=== PATIENT | female | born 1935 | race Caucasian/White ===

== ENCOUNTER 2019-10-19 09:28 | Outpatient (RCR) | payer MEDICARE, SELFPAY | END 2019-10-22 23:59 | disposition home or self-care (01) | LOC: SPT 09:28 | PROVIDERS: PCP Family Medicine; Referring Provider Family Medicine; Visit Provider Family Medicine | DX: M54.32 Sciatica, left side (principal); M11.29 Other chondrocalcinosis, multiple sites | CPT/HCPCS: 97110; 97162 ==

== ENCOUNTER 2019-10-23 06:00 | Outpatient (RCR) | payer MEDICARE, SELFPAY | END 2019-11-21 23:59 | disposition home or self-care (01) | LOC: SPT 06:00 | PROVIDERS: PCP Family Medicine; Visit Provider Family Medicine | DX: M54.30 Sciatica, unspecified side (principal); M11.80 Other specified crystal arthropathies, unspecified site | CPT/HCPCS: 97110 ==

== ENCOUNTER 2019-11-22 06:00 | Outpatient (RCR) | payer MEDICARE, SELFPAY | END 2019-12-22 23:59 | disposition home or self-care (01) | LOC: SPT 06:00 | PROVIDERS: PCP Family Medicine; Visit Provider Family Medicine | DX: M11.80 Other specified crystal arthropathies, unspecified site (principal); M54.30 Sciatica, unspecified side | CPT/HCPCS: 97110 ==

== ENCOUNTER 2021-03-23 15:08 | Observation (INO) | payer MEDICARE, SELFPAY ==
--- NOTE | 2021-03-23 15:22 | CTR_ITS ---
PROCEDURE INFORMATION: Exam: CT Angiography Head With Contrast, Arteriography Exam date and time: 03/23/2021 3:22 PM Age: 85 years old Clinical indication: Patient HX: Weakness, trouble walking, AMS; Additional info: Stroke TECHNIQUE: Imaging protocol: Computed tomography angiography of the head with contrast. Exam focused on the arteries. 3D rendering (Not supervised by radiologist): MIP reconstructed images were created by the technologist. Radiation optimization: All CT scans at this facility use at least one of these dose optimization techniques: automated exposure control; mA and/or kV adjustment per patient size (includes targeted exams where dose is matched to clinical indication); or iterative reconstruction. Contrast material: VISI 320; Contrast volume: 95 ml; Contrast route: INTRAVENOUS (IV); COMPARISON: CT head wo con* [id number] 03/23/2021 3:25 PM RADIATION DOSE METRICS: Total DLP (mGy-cm): 1302.92 FINDINGS: ANTERIOR CIRCULATION: Right internal carotid artery: Right internal carotid artery siphon calcified plaque, less than 50% stenosis. Right middle cerebral artery: Unremarkable. No occlusion or significant stenosis. No aneurysm. Right anterior cerebral artery: Unremarkable. No occlusion or significant stenosis. No aneurysm. Left internal carotid artery: 50-69% stenosis left internal carotid artery cavernous and clinoid segments. Left middle cerebral artery: Unremarkable. No occlusion or significant stenosis. No aneurysm. Left anterior cerebral artery: Unremarkable. No occlusion or significant stenosis. No aneurysm. POSTERIOR CIRCULATION: Right vertebral artery: Unremarkable. No occlusion or significant stenosis. No aneurysm. Left vertebral artery: Unremarkable. No occlusion or significant stenosis. No aneurysm. Basilar artery: Unremarkable. No occlusion or significant stenosis. No aneurysm. Right posterior cerebral artery: Unremarkable. No occlusion or significant stenosis. No aneurysm. Left posterior cerebral artery: Unremarkable. No occlusion or significant stenosis. No aneurysm. Brain: No definite mass, mass effect, or midline shift. Cerebral ventricles: No ventriculomegaly. Bones/joints: Unremarkable. No acute fracture. Soft tissues: Unremarkable. IMPRESSION: 1. 50-69% stenosis left internal carotid artery cavernous and clinoid segments. 2. No acute intracranial vascular abnormality identified. PROCEDURE INFORMATION: Exam: CT Angiography Neck With Contrast Exam date and time: 03/23/2021 3:22 PM Age: 85 years old Clinical indication: Patient HX: Weakness, trouble walking, AMS; Additional info: Stroke TECHNIQUE: Imaging protocol: Computed tomography angiography of the neck with contrast. 3D rendering (Not supervised by radiologist): MIP reconstructed images were created by the technologist. Radiation optimization: All CT scans at this facility use at least one of these dose optimization techniques: automated exposure control; mA and/or kV adjustment per patient size (includes targeted exams where dose is matched to clinical indication); or iterative reconstruction. Contrast material: VISI 320; Contrast volume: 95 ml; Contrast route: INTRAVENOUS (IV); COMPARISON: CT head wo con* [id number] 03/23/2021 3:25 PM RADIATION DOSE METRICS: Total DLP (mGy-cm): 1302.92 FINDINGS: Right common carotid artery: Moderate-marked calcification right common carotid artery bifurcation, less than 50% stenosis. Right internal carotid artery: Moderate calcified plaque right internal carotid artery origin, less than 50% stenosis. Right external carotid artery: Moderate calcified plaque right external carotid artery origin, less than 50% stenosis. Left common carotid artery: Severe left common carotid artery bifurcation calcified plaque, less than 50% stenosis. Left internal carotid artery: Moderate proximal left internal carotid artery calcified plaque, less than 50% stenosis. Left external carotid artery: Severe stenosis left external carotid artery origin. Right vertebral artery: 50-69% stenosis right vertebral artery origin. Left vertebral artery: No stenosis. No dissection or occlusion. Thyroid: Left thyroid enhancing and partially necrotic nodules measuring 17.3 mm and 13.3 mm. Soft tissues: Normal. No significant soft tissue swelling. Bones/joints: Bilateral C3-C4 facet joint fusion. Multilevel disc findings: Mild C2-C3 and C3-C4 anterolisthesis. Mild C5-C6 and C6-C7 retrolisthesis. Multilevel cervical spondylosis, neural foraminal stenoses and facet primary osteoarthritis. CT/CT angio headneck* [id number] IMPRESSION: 1. Severe stenosis left external carotid artery origin. 2. 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 3. No acute extracranial vascular abnormality identified. 4. Recommend nonemergent thyroid sonography for further evaluation of a possible left thyroid nodules. COMMENTS: Consistent with the [employer]'s Incidental Findings Committee white paper (J Am Kianna Radiol 2015): In patients aged 35 years and older with an incidental thyroid nodule equal to or greater than 1.[address], MRI or extrathyroidal US, further evaluation with dedicated thyroid US is recommended for patients with normal life expectancy and without comorbidities. For smaller nodules without suspicious features, no further evaluation or follow up is recommended. REFERENCES: NASCET CRITERIA. The degree of internal carotid artery stenosis is based on NASCET criteria. Normal is no stenosis. Mild is less than 50% stenosis. Moderate is 50-69% stenosis. Severe is 70% to 99% stenosis. Total occlusion is no detectable patent lumen. Radiation Dose CTDIVOL = (mGy): DLP = 1302.92~1302.92 (mGy-cm)
--- NOTE | 2021-03-23 15:22 | CTR_ITS ---
PROCEDURE INFORMATION: Exam: CT Head Without Contrast Exam date and time: 03/23/2021 3:22 PM Age: 85 years old Clinical indication: Walking, difficulty and weakness, extremity; Bilateral; Additional info: Symptoms of acute stroke TECHNIQUE: Imaging protocol: Computed tomography of the head without contrast. Radiation optimization: All CT scans at this facility use at least one of these dose optimization techniques: automated exposure control; mA and/or kV adjustment per patient size (includes targeted exams where dose is matched to clinical indication); or iterative reconstruction. Other technique: STROKE PROTOCOL was implemented. COMPARISON: No relevant prior studies available. RADIATION DOSE METRICS: Total DLP (mGy-cm): 850.96 FINDINGS: Brain: Moderate hypoattenuating foci are noted in the anterior lateral ventricular periventricular white matter bilaterally. No intracranial hemorrhage. No mass or acute cortical infarction identified. Cerebral ventricles: Prominence of the ventricular system and subarachnoid spaces is consistent with the patient's age of 85 years. Paranasal sinuses: Visualized sinuses are unremarkable. No fluid levels. Mastoid air cells: Visualized mastoid air cells are well aerated. Orbital cavity: Bilateral prior cataract surgery with lens replacements. Vasculature: Atherosclerotic calcifications are present involving the carotid artery siphons bilaterally. Bones/joints: No acute abnormality. No acute fracture. Soft tissues: Unremarkable. CT/CT head wo con* [id number] IMPRESSION: 1. Age appropriate supratentorial and infratentorial atrophy. 2. Moderate chronic white matter microvascular ischemic disease. 3. No acute intracranial abnormality identified. ASSESSMENT: ASPECTS ([place] Stroke Program Early CT Score) is 10. Radiation Dose CTDIVOL = (mGy): DLP = 850.96 (mGy-cm)
[2021-03-23 15:29] VITALS: BP 147/97; PULSE 61; RESP 14; TEMP 36.6; O2SAT 94
--- NOTE | 2021-03-23 15:43 | ECG_ITS ---
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 f
--- NOTE | 2021-03-23 15:43 | ED_ITS ---
HPI - General Adult General: Chief complaint: ER Hold Stated complaint: STROKE LIKE SYMPTOMS Time Seen by Provider: 03/23/21 15:22 History of Present Illness: HPI narrative: 85-year-old female with history of prior breast cancer, colon cancer presenting to the emergency room after concerns for intermittent right-sided weakness. Patient was last seen normal at 1230 today at which point family noticed that patient felt lightheaded while using the bathroom and fell down. Family denies any trauma to the head. Patient was noted to have a sided facial droop and right-sided weakness. Since then, patient recover. Per family, patient had another episode of right-sided weakness and facial droop around 230 again that recovered. By the time patient arrived, patient had a stroke scale of 0. Patient denies any chest pain, short palpitation shortness of breath, abdominal complaints or complaints this time. Patient did feel lightheaded. Denies any prior episodes of lightheadedness. Patient denies any fever or chills, no other focal complaints at this time. Onset: 3 hrs ago Duration:3 hrs Location:home Severity:moderate/severe Review of Systems Narrative: Constitutional: No fever, no chills. HEENT: No vision changes CV: No chest pain, no palpitations PULM: no cough, no dyspnea. GI: No abdominal pain, no N/V/D. : No dysuria MSKEL: No muscle pain SKIN: No new rashes, no lesions. NEURO: +intermittent R sided weakness/R sided facial drloop HEME: No visible bruises PSYCH: Normal mood PFSH ED 2 PFSH: Medical History (Updated 03/25/21 @ 00:01 by ) Brain TIA Syncope and collapse Physical Exam Narrative: EXAM NARRATIVE: Head: Atraumatic Eyes: PERRL, conjunctiva without injection ENT: Mucous membrane moist NECK: Supple, ROM intact LUNGS: LCTAB, no crackles/rhonchi CV: RRR ABDOMEN: Soft, nontender in all quadrants EXTREMITY: Normal ROM SKIN: No rash or erythema NEURO: Mental status? Awake, alert, and oriented to self, year, month, location, and situation.? Following simple axial and appendicular commands.? Has appropriate fund of knowledge, comprehension, and insight.? Able to recall and understands pertinent aspects of medical history and current treatment status.? ? Language? Speech is fluent without word-finding difficulties.? 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 ? Cranial nerves? 2,3,4,6: PERRL, EOMI with no nystagmus. 5: Intact sensation to light touch, symmetric? 7: Smile symmetrical, no facial droop.? 8: Hearing grossly intact.? 9,10: Normal palate movement.? 11: Normal strength in trapezius bilaterally 12: Tongue protrudes midline.? ? Motor examination? Normal bulk & tone. Strength as follows (R/L): Delts (5/5), Biceps (5/5), Triceps (5/5), Wrist ext (5/5), hip flexors (5/5), plantarflexors (5/5), dorsiflexors (5/5). ? Sensation? Light Touch: Grossly intact and equal in upper and lower extremities bilaterally? Romberg: Negative.? Distal joint position sense intact ? Coordination? Efszri-zt-vugi-finger movements intact without dysmetria or past-pointing.? Rapid fingertaps: preserved amplitude without decriment.? No tremor, myoclonus or truncal ataxia.? ? Gait/stance? Steady, normal narrow base gait with appropriate arm swing and turning.? Tandem gait without hesitation or loss of balance. PSYCH: Normal mood and affect Course Vital Signs: Vital signs: Vital Signs Temperature 97.8 F 03/24/21 08:00 Pulse Rate 77 03/24/21 17:18 Respiratory Rate 24 H 03/24/21 17:18 Blood Pressure 127/60 03/24/21 17:18 Pulse Oximetry 92 03/24/21 17:18 MDM - General Adult MDM Narrative: Medical decision making narrative: 85-year-old female with a history of prior colon cancer and breast cancer presenting to the emergency room with her for intermittent right-sided weakness. On exam, patient is NIH stroke scale of 0 at the present time. Will work for TIA vs syncope today Disposition: Admission Lab Data: Labs: Lab Results 03/23/21 03/23/21 03/23/21 16:05 16:05 16:05 WBC 14.2 10^3/uL H 10 ^3/uL (4.0-10.0) RBC 4.36 10^6/uL 10^6 /uL (4.1-5.3) Hgb 13.9 g/dL g/dL (11.5-15.3) Hct 41.6 % % (37.0-47.0) MCV 95.4 fl fl (81-99) MCH 31.9 pg pg (28.0-34.0) MCHC 33.4 g/dL g/dL (30.0-36.0) RDW 12.9 % % (12.1-15.1) Plt Count 319 10^3/cmm 10^3 /cmm (130-400) MPV 10.5 fL H fL (7.4-10.4) Neut % (Auto) 80.5 % % Lymph % (Auto) 12.1 % % [place] % (Auto) 6.6 % % Eos % (Auto) 0.1 % % Baso % (Auto) 0.4 % % Neut # (Auto) 11.42 10^3/uL H 1 0^3/uL (1.8-7.7) Lymph # (Auto) 1.7 10^3/uL 10^3/ uL (0.8-4.8) [place] # (Auto) 0.9 10^3/uL 10^3/ uL (0.2-0.9) Eos # (Auto) 0.0 10^3/uL 10^3/ uL (0.0-0.8) Baso # (Auto) 0.1 10^3/uL 10^3/ uL (0.0-0.1) Nucleated RBC % (a uto) 0 % % Nucleated RBCs # 0.0 /100WBC /100W BC PT 14.20 SECONDS SEC ONDS (12.1-14.9) INR 1.06 (0.8-1.2) APTT 33.0 SECONDS SECO NDS (23.9-36.7) Sodium 137 mmol/L mmol/L (136-145) Potassium 5.2 mmol/L H mmol /L (3.5-5.1) Chloride 100 mmol/L mmol/L (98-107) Carbon Dioxide 27 mmol/L mmol/L (22-29) Anion Gap 15.2 (5-19) BUN 23 mg/dL mg/dL (8-23) Creatinine 1.0 mg/dL H mg/dL (0.5-0.9) GFR Calculation Not Reportable Glucose 103 mg/dL mg/dL (65-115) POC Glucose Calculated Osmolal ity 288 mOsm/kg mOsm/ kg (285-295) Calcium 9.6 mg/dL mg/dL (8.5-10.5) Total Bilirubin 0.2 mg/dL mg/dL (0.15-1.2) AST 21 U/L U/L (0-32) ALT 16 U/L U/L (0-33) Alkaline Phosphata se 61 IU/L IU/L (35-105) Troponin T Baselin e Troponin T 120 Min [place] Troponin T Total Protein 7.3 g/dL g/dL (6.6-8.7) Albumin 4.5 g/dL g/dL (3.5-5.2) Globulin 2.8 g/dL g/dL (1.3-4.6) Urine Color Urine Appearance Urine pH Ur Specific Gravit y Urine Protein Urine Glucose (UA) Urine Ketones Urine Blood Urine Nitrate Urine Bilirubin Urine Urobilinogen Ur Leukocyte Najma ase Urine Opiates Scre en Ur Barbiturates Sc reen Ur Phencyclidine S crn Ur Amphetamines Sc reen U Benzodiazepines Scrn Urine Cocaine Scre en U Marijuana (THC) Screen 03/23/21 03/23/21 03/23/21 16:05 16:18 16:27 WBC RBC Hgb Hct MCV MCH MCHC RDW Plt Count MPV Neut % (Auto) Lymph % (Auto) [place] % (Auto) Eos % (Auto) Baso % (Auto) Neut # (Auto) Lymph # (Auto) [place] # (Auto) Eos # (Auto) Baso # (Auto) Nucleated RBC % (a uto) Nucleated RBCs # PT INR APTT Sodium Potassium Chloride Carbon Dioxide Anion Gap BUN Creatinine GFR Calculation Glucose POC Glucose 100 mg/dL mg/dL (70-110) Calculated Osmolal ity Calcium Total Bilirubin AST ALT Alkaline Phosphata se Troponin T Baselin e 11 ng/L H ng/L (0-10) Troponin T 120 Min [place] Troponin T Total Protein Albumin Globulin Urine Color Yellow (Yellow) Urine Appearance Clear (CLEAR) Urine pH 7 (5-7) Ur Specific Gravit y 1.010 (1.005-1.030) Urine Protein Neg (Negative) Urine Glucose (UA) Norm (Normal) Urine Ketones Negative (Negative) Urine Blood Neg (Negative) Urine Nitrate Negative (Negative) Urine Bilirubin Neg (Negative) Urine Urobilinogen Norm mg/dL mg/dL (Negative) Ur Leukocyte Najma ase Negative (Negative) Urine Opiates Scre en Ur Barbiturates Sc reen Ur Phencyclidine S crn Ur Amphetamines Sc reen U Benzodiazepines Scrn Urine Cocaine Scre en U Marijuana (THC) Screen 03/23/21 03/23/21 03/23/21 16:27 18:25 18:25 WBC RBC Hgb Hct MCV MCH MCHC RDW Plt Count MPV Neut % (Auto) Lymph % (Auto) [place] % (Auto) Eos % (Auto) Baso % (Auto) Neut # (Auto) Lymph # (Auto) [place] # (Auto) Eos # (Auto) Baso # (Auto) Nucleated RBC % (a uto) Nucleated RBCs # PT INR APTT Sodium 135 mmol/L L mmol /L (136-145) Potassium 4.5 mmol/L mmol/L (3.5-5.1) Chloride 99 mmol/L mmol/L (98-107) Carbon Dioxide 26 mmol/L mmol/L (22-29) Anion Gap 14.5 (5-19) BUN 21 mg/dL mg/dL (8-23) Creatinine 0.8 mg/dL mg/dL (0.5-0.9) GFR Calculation Not Reportable Glucose 92 mg/dL mg/dL (65-115) POC Glucose Calculated Osmolal ity 283 mOsm/kg L mOs m/kg (285-295) Calcium 8.8 mg/dL mg/dL (8.5-10.5) Total Bilirubin AST ALT Alkaline Phosphata se Troponin T Baselin e Troponin T 120 Min [place] 10.28 ng/L H ng/L (0-10) Delta Troponin T -0.72 ABS# L ABS# (0-10) Total Protein Albumin Globulin Urine Color Urine Appearance Urine pH Ur Specific Gravit y Urine Protein Urine Glucose (UA) Urine Ketones Urine Blood Urine Nitrate Urine Bilirubin Urine Urobilinogen Ur Leukocyte Najma ase Urine Opiates Scre en Negative ng/mL ng /mL (Negative) Ur Barbiturates Sc reen Negative ng/mL ng /mL (Negative) Ur Phencyclidine S crn Negative ng/mL ng /mL (Negative) Ur Amphetamines Sc reen Negative ng/mL ng /mL (Negative) U Benzodiazepines Scrn Negative ng/mL ng /mL (Negative) Urine Cocaine Scre en Negative ng/mL ng /mL (Negative) U Marijuana (THC) Screen Negative ng/mL ng /mL (Negative) Imaging Data^: Other Imaging: Radiologist's impression: [facility], [place] [address]ML Scan ReportSigned with Addenda Patient: Yudith Albright #: [id number]: 07/22cct#:[id number]/Sex: 85 / FADM Date: 03/23/21Loc: ERRoom/Bed:Attending Dr: Ordering Provider/Ordering MD: Sahra Castro MD Date of Service: 03/23/21 Procedure(s): CT head wo con* [id number] Accession Number(s): [id number] Report Number: [id number]/CT head wo con* [id number] THIS REPORT CONTAINS FINDINGS THAT MAY BE CRITICAL TO PATIENT CARE. The findings were verbally communicated by me to DR. SAHRA CASTRO, via telephone conference at 3:55 PM CDT on 03/23/2021. The findings were acknowledged and understood. 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 Radiation Dose CTDIVOL = (mGy): DLP = 850.96 (mGy-cm) Addendum Dictated By: Jake Treadwell MDAddendum Signed By: Jake Treadwell MDSigned Date/Time:03/23/21 1558Addendum Cosigned By: PROCEDURE INFORMATION: Exam: CT Head Without Contrast Exam date and time: 03/23/2021 3:22 PM Age: 85 years old Clinical indication: Walking, difficulty and weakness, extremity; Bilateral; Additional info: Symptoms of acute stroke TECHNIQUE: Imaging protocol: Computed tomography of the head without contrast. Radiation optimization: All CT scans at this facility use at least one of these dose optimization techniques: automated exposure control; mA and/or kV adjustment per patient size (includes targeted exams where dose is matched to clinical indication); or iterative reconstruction. Other technique: STROKE PROTOCOL was implemented. COMPARISON: No relevant prior studies available. RADIATION DOSE METRICS: Total DLP (mGy-cm): 850.96 FINDINGS: Brain: Moderate hypoattenuating foci are noted in the anterior lateral ventricular periventricular white matter bilaterally. No intracranial hemorrhage. No mass or acute cortical infarction identified. Cerebral ventricles: Prominence of the ventricular system and subarachnoid spaces is consistent with the patient's age of 85 years. Paranasal sinuses: Visualized sinuses are unremarkable. No fluid levels. Mastoid air cells: Visualized mastoid air cells are well aerated. Orbital cavity: Bilateral prior cataract surgery with lens replacements. Vasculature: Atherosclerotic calcifications are present involving the carotid artery siphons bilaterally. Bones/joints: No acute abnormality. No acute fracture. Soft tissues: Unremarkable. CT/CT head wo con* [id number] IMPRESSION: 1. Age appropriate supratentorial and infratentorial atrophy. 2. Moderate chronic white matter microvascular ischemic disease. 3. No acute intracranial abnormality identified. ASSESSMENT: ASPECTS ([place] Stroke Program Early CT Score) is 10. Radiation Dose CTDIVOL = (mGy): DLP = 850.96 (mGy-cm) Dictated By:Jake Treadwell MDSigned By:Jake Treadwell MDSigned Date/Time:03/23/21 1538DD/ 21 Discharge Plan Discharge Patient Disposition: Admitted As Inpatient Admit Provider: Karma Arriola Clinical Impression: Syncope and collapse, Brain TIA Condition: Stable Discharge Diet: Cardiac Discharge Activity: Increase activity as tolerated Coding Level of Care Code ED Rivet Machine Operator for aDnii Velarde
[2021-03-23 16:08] VITALS: BP 164/75; PULSE 70; RESP 22; O2SAT 94
[2021-03-23 16:18] LABS: Basophils # 0.1 10^3/uL (0.0-0.1); Basophils % 0.4 %; Eosinophils % 0.1 %; Hematocrit 41.6 % (37.0-47.0); Hemoglobin 13.9 g/dL (11.5-15.3); Lymphocytes # 1.7 10^3/uL (0.8-4.8); Lymphocytes % 12.1 %; Mean Corpuscular HGB Conc 33.4 g/dL (30.0-36.0); Mean Corpuscular Hemoglobin 31.9 pg (28.0-34.0); Mean Corpuscular Volume 95.4 fl (81-99); Mean Platelet Volume 10.5 fL (7.4-10.4); Monocytes # 0.9 10^3/uL (0.2-0.9); Monocytes % 6.6 %; Neutrophils # 11.42 10^3/uL (1.8-7.7); Neutrophils % 80.5 %; Nucleated Red Blood Cells % 0 %; Platelet Count 319 10^3/cmm (130-400); Red Blood Count 4.36 10^6/uL (4.1-5.3); Red Cell Distribution Width 12.9 % (12.1-15.1); White Blood Count 14.2 10^3/uL (4.0-10.0)
[2021-03-23 16:22] LABS: Glucose Point of Care 100 mg/dL (70-110)
[2021-03-23 16:38] LABS: INR 1.06 (0.8-1.2)
[2021-03-23 16:41] LABS: Troponin(5th) Baseline 11 ng/L (0-10)
[2021-03-23 16:43] LABS: Alanine Aminotransferase 16 U/L (0-33); Albumin Level 4.5 g/dL (3.5-5.2); Alkaline Phosphatase 61 IU/L (35-105); Anion Gap 15.2 (5-19); Aspartate Amino Transferase 21 U/L (0-32); Blood Urea Nitrogen 23 mg/dL (8-23); Calcium 9.6 mg/dL (8.5-10.5); Carbon Dioxide 27 mmol/L (22-29); Chloride 100 mmol/L (98-107); Globulin 2.8 g/dL (1.3-4.6); Glucose 103 mg/dL (65-115); Osmolality Calculated 288 mOsm/kg (285-295); Potassium 5.2 mmol/L (3.5-5.1); Sodium 137 mmol/L (136-145); Total Bilirubin 0.2 mg/dL (0.15-1.2); Total Protein 7.3 g/dL (6.6-8.7)
[2021-03-23] MEDS: iodixanol 320 mg/mL 100mL Btl IV (16:47)
[2021-03-23 17:14] LABS: Add Urine Microscopic? NO; Charge for UA Resulting for Rev
[2021-03-23 17:20] LABS: Bilirubin Urine Neg (Negative); Blood Urine Neg (Negative); Glucose Urine UA Norm (Normal); Ketones Urine Negative (Negative); Leukocyte Esterase Urine Negative (Negative); Nitrate Urine Negative (Negative); Protein Urine Neg (Negative); Urine Appearance Clear (CLEAR); Urine Color Yellow (Yellow); Urobilinogen Urine Norm (Negative); pH Urine 7 (5-7)
[2021-03-23 17:27] LABS: Amphetamines Screen Urine Negative (Negative); Barbiturates Screen Urine Negative (Negative); Benzodiazepines Screen Urine Negative (Negative); Cocaine Screen Urine Negative (Negative); Opiate Screen Urine Negative (Negative); PCP Screen Urine Negative (Negative); THC Screen Urine Negative (Negative)
--- NOTE | 2021-03-23 17:43 | ECG_ITS ---
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
--- NOTE | 2021-03-23 18:50 | PM.HP ---
Providers/Chief Complaint Primary Care Provider: Tulio Car DO Chief Complaint: STROKE LIKE SYMPTOMS History of Present Illness Yudith Albright is a 85 year old female with no significant past medical history except breast cancer, colon cancer treated years ago. Patient states he used to be on aspirin after her colon cancer which she recently stopped taking. She states that today around noon she was heading to the bathroom and while sitting on the toilet seat she felt lightheaded and fell on her left side and landed on a basket of toilet paper. She did not hit her head anywhere. Around 2:30 PM her son came over and she had a blank stare with droopiness of her left side and left-sided weakness. It lasted a few minutes and by the time she was brought to the ER the symptoms had completely resolved. In the ER NIH was 1. Patient was asymptomatic. There were no neurological deficits. Stroke alert was called. CT head without contrast was performed which was negative for any intracranial bleed or pathology, CTA head and neck was also done which showed 50 to 69% stenosis left internal carotid artery cavernous and clinoid segments. Severe stenosis left external carotid artery origin, 50 to 69% stenosis right vertebral artery origin no acute extracranial vascular abnormality identified. Severe left common carotid artery bifurcation calcified plaque. Patient does state that she has recently lost her to an intracranial bleed and because of self a worrier at all times. She also appears a little anxious while her discussion in the ER. She denies any chest pain, palpitations, shortness of breath abdominal complaints or prior episodes of lightheadedness at this time. Blood pressure on arrival 164/75, pulse ox 94%, respiratory 22, pulse rate 70, temperature 98. She does not carry a diagnosis of hypertension. She is quite anxious today. She denies smoking but does drink a glass of wine occasionally at night before going to sleep. Review of Systems General: Reports: 10 or more systems reviewed and unremarkable except in HPI and below Medications/Allergies Home Medications Medication Instructions Recorded Confirmed Last Taken Type No Known Home Medications 03/23/21 03/23/21 Unknown History Allergies Allergy/AdvReac Type Severity Reaction Status Date / Time No Known Allergies Allergy Unverified 03/23/21 16:42 Vitals/I&O/Wt Last Vital Signs Temp 98 F 03/23/21 15:29 Pulse 70 03/23/21 16:08 Resp 22 H 10/31/21 16:08 BP 164/75 03/23/21 16:08 Pulse Ox 94 03/23/21 16:08 Physical Exam Narrative: EXAM NARRATIVE: General: Alert oriented x3, patient seen sitting up in bed appearing very comfortable. Patient does appear anxious. HEENT: Normocephalic, atraumatic, EOMI, breathing room air Cardio: Regular rate rhythm, normal S1-S2, no murmurs rubs gallops, Respiratory: Good bilateral air entry, no wheezes no rhonchi appreciated GI: Abdomen soft, nontender, nondistended, bowel sounds + Behavior: Appropriate and cooperative Extremities: Pulses 2+, no edema, no cyanosis Neuro: Cranial nerves II to XII intact, strength 5 out of 5 upper and lower extremities. Right upper extremity division controller weak 4 out of 5. She states she has a history of arthritis in her right hand has always been a little bit weaker. Sensation intact upper and lower extremity, no focal neurological deficits. [id number] test normal, [id number] test normal. Data : 03/23/21 16:05 03/23/21 16:05 A&P Assessment and plan (1) Syncope and collapse: Status: Acute (2) Brain TIA: Status: Acute (3) Carotid artery stenosis: Status: Acute Additional A&P Information #TIA #Severe left carotid artery stenosis #Syncope and collapse #Questionable atrial fibrillation ?Stroke alert called in ER. NIH 0. CTA did not show any acute pathology ?CTA did show severe internal carotid artery stenosis. Will need to consult cardiology in a.m. Question of atrial fibrillation in ER on telemetry. Possibly paroxysmal at this point. Will need to monitor on telemetry overnight ?Start aspirin Plavix atorvastatin Check lipid panel, hemoglobin A1c Patient offered medication for anxiety but she has refused at this time. Son present at bedside. Will check echo. Plan has been discussed in detail with the patient and her son. We will admit for observation. We will check MRI brain Neurochecks every 4 hours Vitals every 4 hours Will need follow-up with neurology as an outpatient after discharge. DVT prophylaxis: Heparin Fluids: Normal saline 100 cc/h Electrolytes: Replete as needed Nutrition: Cardiac diet Activity: As tolerated Attestations Medical Necessity Statement*: Anticipate < 48 hour stay Time Spent in Patient Care: Greater than 35 minutes (>than 50% of time spent in counselling and/or direct pt care on unit). 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
--- NOTE | 2021-03-23 19:05 | PC.NURSE ---
REPORT GIVEN TO HATTIE MINOR ASSUMED CARE.
[2021-03-23 19:17] LABS: Troponin 5 2HR 10.28 ng/L (0-10)
[2021-03-23 19:19] LABS: Anion Gap 14.5 (5-19); Blood Urea Nitrogen 21 mg/dL (8-23); Calcium 8.8 mg/dL (8.5-10.5); Carbon Dioxide 26 mmol/L (22-29); Chloride 99 mmol/L (98-107); Glucose 92 mg/dL (65-115); Osmolality Calculated 283 mOsm/kg (285-295); Potassium 4.5 mmol/L (3.5-5.1); Sodium 135 mmol/L (136-145)
[2021-03-23 19:27] VITALS: BP 151/80; PULSE 68; RESP 18; O2SAT 96
[2021-03-23 19:42] LABS: Troponin 5 2HR Delta -0.72 ABS# (0-10)
[2021-03-23 21:37] VITALS: BP 108/56; PULSE 79; RESP 16; O2SAT 93
--- NOTE | 2021-03-23 21:43 | ECG_ITS ---
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
[2021-03-23] MEDS: sodium chloride 0.9% 1,000 ML 75 ML IV (21:57)
[2021-03-23] MEDS: heparin 5,000 unit/mL INJ 1 mL 5000 UNIT SUBCUT (22:03)
[2021-03-23 23:17] LABS: Troponin 5 6HR 10.05 ng/L (0-10)
[2021-03-23 23:25] LABS: Troponin 5 6HR Delta -0.95 ng/L (0-12)
[2021-03-24] VITALS (11 sets, daily range): BP systolic 121–161; BP diastolic 60–85; PULSE 69–89; RESP 16–24; TEMP 36.6; O2SAT 92–96
[2021-03-24 04:58] LABS: Basophils % 0.4 %; Eosinophils # 0.1 10^3/uL (0.0-0.8); Eosinophils % 1.3 %; Hematocrit 37.8 % (37.0-47.0); Hemoglobin 12.6 g/dL (11.5-15.3); Lymphocytes # 2.2 10^3/uL (0.8-4.8); Lymphocytes % 21.2 %; Mean Corpuscular HGB Conc 33.3 g/dL (30.0-36.0); Mean Corpuscular Hemoglobin 32.1 pg (28.0-34.0); Mean Corpuscular Volume 96.2 fl (81-99); Mean Platelet Volume 9.9 fL (7.4-10.4); Monocytes # 0.9 10^3/uL (0.2-0.9); Monocytes % 8.9 %; Neutrophils # 7.16 10^3/uL (1.8-7.7); Neutrophils % 67.8 %; Nucleated Red Blood Cells % 0 %; Platelet Count 290 10^3/cmm (130-400); Red Blood Count 3.93 10^6/uL (4.1-5.3); Red Cell Distribution Width 13.1 % (12.1-15.1); White Blood Count 10.6 10^3/uL (4.0-10.0)
[2021-03-24 05:34] LABS: Alanine Aminotransferase 12 U/L (0-33); Albumin Level 3.9 g/dL (3.5-5.2); Alkaline Phosphatase 49 IU/L (35-105); Anion Gap 12.2 (5-19); Aspartate Amino Transferase 17 U/L (0-32); Blood Urea Nitrogen 16 mg/dL (8-23); Calcium 8.5 mg/dL (8.5-10.5); Carbon Dioxide 27 mmol/L (22-29); Chloride 102 mmol/L (98-107); Chol HDL Ratio 2.64 mg/dL (0.0-4.40); Cholesterol 222 mg/dL (0-200); Globulin 2.5 g/dL (1.3-4.6); Glucose 105 mg/dL (65-115); HDL Cholesterol 84 mg/dL (60-100); LDL Cholesterol Calculated 126 mg/dL (50-129); Magnesium 2.1 mg/dL (1.7-2.3); Osmolality Calculated 286 mOsm/kg (285-295); Phosphorus 3.7 mg/dL (2.5-4.5); Potassium 4.2 mmol/L (3.5-5.1); Sodium 137 mmol/L (136-145); Thyroid Stimulating Hormone 3.02 uIU/mL (0.27-4.20); Total Bilirubin 0.3 mg/dL (0.15-1.2); Total Protein 6.4 g/dL (6.6-8.7); Triglycerides 61 mg/dL (0-150)
[2021-03-24 05:44] LABS: Estmated Average Glucose 108; Hemoglobin A1C 5.4 % (4.0-6.0)
--- NOTE | 2021-03-24 06:05 | USCV_ITS ---
Yudith Albright Age: 85 Gender: F : 1935 Exam Date: 03/24/2021 08:04 Ordering Phys: Karma Arriola MD Technologist: Sirisha Ashley Exam Location: [facility] [place] Indication: TIA BP: 129 / 77 HR: 68 Rhythm: Sinus Technical Quality: Technically difficult study MEASUREMENTS (Male / Female) Normal Values 2D ECHO LV Diastolic Diameter PLAX 3.5 cm 4.2 - 5.9 / 3.9 - 5.3 cm LV Systolic Diameter PLAX 2.5 cm IVS Diastolic Thickness 1.3 cm 0.6 - 1.0 / 0.6 - 0.9 cm IVS Systolic Thickness 2.1 cm LVPW Diastolic Thickness 1.7 cm 0.6 - 1.0 / 0.6 - 0.9 cm LVPW Systolic Thickness 2.0 cm LVOT Diameter 2.0 cm LV Ejection Fraction 2D Teich 57.2 % LV Ejection Fraction MOD 2C 47.7 % LV Ejection Fraction 2C AL 48.5 % LA Diameter 2.7 cm LA Width 2.3 cm LA Height 4.1 cm RA Width 3.2 cm RA Height 3.8 cm Aorta at Sinotubular Diameter 2.3 cm M-MODE Aortic Annulus Diameter 2.5 cm LA Ao Ratio MM 1.1 MV E Point Septal Separation 0.2 cm DOPPLER AV Peak Velocity 216.5 cm/s LVOT Peak Velocity 88.0 cm/s AV Area Cont Eq vti 1.3 cm squared AV Area Cont Eq pk 1.3 cm squared MV Peak Velocity 109.0 cm/s MV Area PHT 3.7 cm squared Mitral E to A Ratio 0.9 MV E' Velocity 42.0 cm/s Mitral E to MV E' Ratio 9.8 Mitral E to LV E' Lateral Ratio 9.8 Mitral E to LV E' Septal Ratio 9.8 TR Peak Velocity 208.0 cm/s TR Peak Gradient 17.3 mmHg TR Mean Velocity 186.2 cm/s TR Mean Gradient 15.1 mmHg TR Velocity Time Integral 74.5 cm TV Peak E Velocity 41.0 cm/s Right Atrial Pressure 3.0 mmHg Pulmonary Artery Systolic Pressu 20.3 mmHg PV Peak Velocity 157.0 cm/s RV Acceleration Time 0.1 s RV Ejection Time 0.3 s RV AcT/ET 0.3 FINDINGS Left Ventricle Normal left ventricular cavity size and increased left ventricular wall thickness. Normal left ventricular systolic function. Left ventricular ejection fraction is estimated at 60- 65 %. No regional wall motion abnormalities. Right Ventricle Normal right ventricular size and systolic function. Right ventricular systolic pressure 20.3 mmHg. Right Atrium Normal right atrial size. Right atrial pressure estimated at 3 mmHg. Left Atrium Mildly increased left atrial size. Mitral Valve Moderate mitral annular calcification. Thickened mitral valve. No mitral valve stenosis. Trace mitral valve regurgitation. Aortic Valve Moderately thickened and calcified aortic valve. Probably moderate aortic valve stenosis, peak velocity 2.2 m/s, peak gradient 20 mm Hg, mean gradient 11 mmHg , LAKEISHA 1.3 cm squared. Aortic valve stenosis visually appears to moderate. Tricuspid Valve Structurally normal tricuspid valve. Trace to mild tricuspid valve regurgitation. Pulmonic Valve Pulmonic valve not well visualized. Trace pulmonary valve regurgitation. Pericardium No pericardial effusion. Aorta Normal-sized aortic root. Normal-sized inferior vena cava with normal respiratory variation. CONCLUSIONS 1. Normal left ventricular cavity size and increased left ventricular wall thickness. Normal left ventricular systolic function. Left ventricular ejection fraction is estimated at 60- 65 %. No regional wall motion abnormalities. 2. Normal right ventricular size and systolic function. 3. Pulmonary artery pressure estimated at 20 mmHg. 4. Moderately thickened and calcified aortic valve. Probably moderate aortic valve stenosis, peak velocity 2.2 m/s, peak gradient 20 mm Hg, mean gradient 11 mmHg , LAKEISHA 1.3 cm squared. Aortic valve stenosis visually appears to moderate. 5. Moderate mitral annular calcification. Thickened mitral valve. 6. No prior similar studies to compare. Rosetta Santos MD (Electronically Signed) Final Date: 24 March 2021 15:23 S
--- NOTE | 2021-03-24 09:19 | PC.CHAP ---
Pastoral Care Encounter/Spiritual Assessment Type of Contact [] Declined saw offbearer visit [] Patient/Family/Request visit [] Outpatient visit [] Follow-up visit [] Physician referral [] Code/Alert [x] Routine visit [] Staff referral [] Actively dying [] Patient sleeping [x] Family support [] [] Out of room [] Palliative care [] [] Receiving care in room [] Pre-surgical visit [] Trauma [] Long length of stay [] ICU visit [] Other: Relational/Emotional Strength [] Patient feels connected with others/family/visitors/staff [] Distress [] Loneliness/isolation [] Abandonment Spirituality of Patient [] Person of Vanessa [] Attends Catholic of their Vanessa [] Believes in Prayer [] Reads Bible or Sabianist materials [] There are Spiritual issues to be addressed Microsoft Exchange Architect Interventions [x] Prayer [x] Active listening [x] Non-anxious presence [x] Spiritual/emotional support [] Crisis/trauma care [] Spiritual counseling [] Bereavement support [] Provided bereavement packet [] Provided Bible/devotional materials [] Provided toy/stuffed animal, coloring book to patient or family member [] Provided Communion [] Anointing/Velarde [] Salvation [x] Completed spiritual assessment [] Other: Impact on Illness or Injury [] Angry [] Fearful [] Anxious [] Often cries [] Exhaustion [] Unable to work [] Unable to attend gnosticism [] Unable to walk/stand [] Unable to read [] Unable to drive [] Unable to eat/drink [] Unable to sleep [] Unable to be with family [] Patient intubated [] Other: Summary patient resting well... son present.. prayed for wellness and total understanding of the issues... so important that she can continue to take care of herself... very pleased with doctor Time spent with patient 10 min
[2021-03-24] MEDS: clopidogrel 75 mg Tablet PO (09:30)
[2021-03-24] MEDS: aspirin 81 mg EC Tablet PO (09:30)
[2021-03-24] MEDS: heparin 5,000 unit/mL INJ 1 mL 5000 UNIT SUBCUT (09:30)
[2021-03-24] MEDS: atorvastatin 40 mg Tablet 80 MG PO (09:32)
--- NOTE | 2021-03-24 12:34 | P.PN_ITS ---
Vitals/I&O/Wt Last Vital Signs Temp 97.8 F 03/24/21 08:00 Pulse 89 03/24/21 12:00 Resp 24 H 03/24/21 12:00 BP 121/71 03/24/21 12:00 Pulse Ox 96 03/24/21 12:00 03/23/21 03/24/21 03/24/21 22:59 06:59 14:59 Intake Total 1000 / 1000 Balance 1000 / 1000 Weight last 48 hrs Weight 57.47 kg Data : 03/24/21 04:50 03/24/21 04:50 Coding Level of Care Code Acute Donor Services Coordinator for Chg Syd
--- NOTE | 2021-03-24 15:59 | PM.DCS ---
Discharge Providers Date of Admission: 03/23/21 21:04 Date of Discharge: March 24, 2021 Attending Provider at Admission: Karma Arriola MD Attending Provider at Discharge: Abdirahman Connelly MD Primary Care Provider: Tulio Car DO Diagnoses at Discharge Discharge Diagnosis (1) Syncope and collapse: Status: Acute (2) Brain TIA: Status: Acute (3) Carotid artery stenosis: Status: Acute Reason for Visit Reason for Visit: STROKE LIKE SYMPTOMS Hospital Course Hospital Course HPI by Dr Arriola Yudith Albright is a 85 year old female with no significant past medical history except breast cancer, colon cancer treated years ago. Patient states he used to be on aspirin after her colon cancer which she recently stopped taking. She states that today around noon she was heading to the bathroom and while sitting on the toilet seat she felt lightheaded and fell on her left side and landed on a basket of toilet paper. She did not hit her head anywhere. Around 2:30 PM her son came over and she had a blank stare with droopiness of her left side and left-sided weakness. It lasted a few minutes and by the time she was brought to the ER the symptoms had completely resolved. In the ER NIH was 1. Patient was asymptomatic. There were no neurological deficits. Stroke alert was called. CT head without contrast was performed which was negative for any intracranial bleed or pathology, CTA head and neck was also done which showed 50 to 69% stenosis left internal carotid artery cavernous and clinoid segments. Severe stenosis left external carotid artery origin, 50 to 69% stenosis right vertebral artery origin no acute extracranial vascular abnormality identified. Severe left common carotid artery bifurcation calcified plaque. Patient does state that she has recently lost her to an intracranial bleed and because of self a worrier at all times. She also appears a little anxious while her discussion in the ER. She denies any chest pain, palpitations, shortness of breath abdominal complaints or prior episodes of lightheadedness at this time. Blood pressure on arrival 164/75, pulse ox 94%, respiratory 22, pulse rate 70, temperature 98. She does not carry a diagnosis of hypertension. She is quite anxious today. She denies smoking but does drink a glass of wine occasionally at night before going to sleep. HOSP COURSE:- Patient was admitted for evaluation of TIA. MRI head unremarkable, echo without significant valvular acute pathologies, CTA head and neck revealed external carotid lesion and intracranial carotid lesion. Patient's family requested an opinion from Dr. Sotomayor. She will be treated medically with dual antiplatelet therapy for 21 days and then continue aspirin and high-dose statins along omeprazole. Patient wants to follow-up with her PCP Dr. Dey. She does not want to follow-up with Dr. Banks at this point in time. Son was at the bedside, all of the findings were discussed with the patient and her son. Questions were answered to their satisfaction. She remained normotensive. No recurrence of symptoms during hospitalization. She will be discharged on aspirin, Plavix and atorvastatin and omeprazole. Physical Exam Narrative: EXAM NARRATIVE: NIH 0 Nonfocal neuro exam S1, S2 Abdomen soft Nonfocal neuro exam EOMI, PERRLA No audible stridor or wheezing Saturating well on room air Discharge Data Data Completed and Pending: Completed Studies During Hospitalization Category Date Time Status CT angio headneck * [id number] Stat Cat Scan 03/23/21 15:[address] head wo con* 7 [id number] Stat Cat Scan 03/23/21 15:22 Completed MR head wo con* 7 0551 Urgent MRI 03/24/21 21:04 Completed CV. echo complete * [id number] Routine Ultrasound 03/24/21 06:05 Completed Labs from last 24 hours 03/24/21 03/24/21 03/24/21 04:50 04:50 04:50 WBC 10.6 H RBC 3.93 L Hgb 12.6 Hct 37.8 MCV 96.2 MCH 32.1 MCHC 33.3 RDW 13.1 Plt Count 290 MPV 9.9 Neut % (Auto) 67.8 Lymph % (Auto) 21.2 [place] % (Auto) 8.9 Eos % (Auto) 1.3 Baso % (Auto) 0.4 Neut # (Auto) 7.16 Lymph # (Auto) 2.2 [place] # (Auto) 0.9 Eos # (Auto) 0.1 Baso # (Auto) 0.0 Nucleated RBC % (a uto) 0 Nucleated RBCs # 0.0 PT INR APTT Sodium 137 Potassium 4.2 Chloride 102 Carbon Dioxide 27 Anion Gap 12.2 BUN 16 Creatinine 0.7 GFR Calculation Not Reportable Glucose 105 POC Glucose Estimat Average Gl ucose 108 Hemoglobin A1c 5.4 Calculated Osmolal ity 286 Calcium 8.5 Phosphorus 3.7 Magnesium 2.1 Total Bilirubin 0.3 AST 17 ALT 12 Alkaline Phosphata se 49 Troponin T Baselin e Troponin T 120 Min arie Delta Troponin T Troponin T Hi Sens 6Hr Troponin T Hi Sens 6Hr Delta Total Protein 6.4 L Albumin 3.9 Globulin 2.5 Triglycerides 61 Cholesterol 222 H LDL Cholesterol, C alc 126 HDL Cholesterol 84 LDL/HDL Ratio 1.50 Cholesterol/HDL Ra tiana 2.64 TSH 3.02 Urine Color Urine Appearance Urine pH Ur Specific Gravit y Urine Protein Urine Glucose (UA) Urine Ketones Urine Blood Urine Nitrate Urine Bilirubin Urine Urobilinogen Ur Leukocyte Najma ase Urine Opiates Scre en Ur Barbiturates Sc reen Ur Phencyclidine S crn Ur Amphetamines Sc reen U Benzodiazepines Scrn Urine Cocaine Scre en U Marijuana (THC) Screen 03/23/21 03/23/21 03/23/21 22:36 18:25 18:25 WBC RBC Hgb Hct MCV MCH MCHC RDW Plt Count MPV Neut % (Auto) Lymph % (Auto) [place] % (Auto) Eos % (Auto) Baso % (Auto) Neut # (Auto) Lymph # (Auto) [place] # (Auto) Eos # (Auto) Baso # (Auto) Nucleated RBC % (a uto) Nucleated RBCs # PT INR APTT Sodium 135 L Potassium 4.5 Chloride 99 Carbon Dioxide 26 Anion Gap 14.5 BUN 21 Creatinine 0.8 GFR Calculation Not Reportable Glucose 92 POC Glucose Estimat Average Gl ucose Hemoglobin A1c Calculated Osmolal ity 283 L Calcium 8.8 Phosphorus Magnesium Total Bilirubin AST ALT Alkaline Phosphata se Troponin T Baselin e Troponin T 120 Min arie 10.28 H Delta Troponin T -0.72 L Troponin T Hi Sens 6Hr 10.05 H Troponin T Hi Sens 6Hr Delta -0.95 L Total Protein Albumin Globulin Triglycerides Cholesterol LDL Cholesterol, C alc HDL Cholesterol LDL/HDL Ratio Cholesterol/HDL Ra tiana TSH Urine Color Urine Appearance Urine pH Ur Specific Gravit y Urine Protein Urine Glucose (UA) Urine Ketones Urine Blood Urine Nitrate Urine Bilirubin Urine Urobilinogen Ur Leukocyte Najma ase Urine Opiates Scre en Ur Barbiturates Sc reen Ur Phencyclidine S crn Ur Amphetamines Sc reen U Benzodiazepines Scrn Urine Cocaine Scre en U Marijuana (THC) Screen 10/03/23/21 03/23/21 16:27 16:27 16:18 WBC RBC Hgb Hct MCV MCH MCHC RDW Plt Count MPV Neut % (Auto) Lymph % (Auto) [place] % (Auto) Eos % (Auto) Baso % (Auto) Neut # (Auto) Lymph # (Auto) [place] # (Auto) Eos # (Auto) Baso # (Auto) Nucleated RBC % (a uto) Nucleated RBCs # PT INR APTT Sodium Potassium Chloride Carbon Dioxide Anion Gap BUN Creatinine GFR Calculation Glucose POC Glucose 100 Estimat Average Gl ucose Hemoglobin A1c Calculated Osmolal ity Calcium Phosphorus Magnesium Total Bilirubin AST ALT Alkaline Phosphata se Troponin T Baselin e Troponin T 120 Min arie Delta Troponin T Troponin T Hi Sens 6Hr Troponin T Hi Sens 6Hr Delta Total Protein Albumin Globulin Triglycerides Cholesterol LDL Cholesterol, C alc HDL Cholesterol LDL/HDL Ratio Cholesterol/HDL Ra tiana TSH Urine Color Yellow Urine Appearance Clear Urine pH 7 Ur Specific Gravit y 1.010 Urine Protein Neg Urine Glucose (UA) Norm Urine Ketones Negative Urine Blood Neg Urine Nitrate Negative Urine Bilirubin Neg Urine Urobilinogen Norm Ur Leukocyte Najma ase Negative Urine Opiates Scre en Negative Ur Barbiturates Sc reen Negative Ur Phencyclidine S crn Negative Ur Amphetamines Sc reen Negative U Benzodiazepines Scrn Negative Urine Cocaine Scre en Negative U Marijuana (THC) Screen Negative 03/23/21 03/23/21 03/23/21 16:05 16:05 16:05 WBC RBC Hgb Hct MCV MCH MCHC RDW Plt Count MPV Neut % (Auto) Lymph % (Auto) [place] % (Auto) Eos % (Auto) Baso % (Auto) Neut # (Auto) Lymph # (Auto) [place] # (Auto) Eos # (Auto) Baso # (Auto) Nucleated RBC % (a uto) Nucleated RBCs # PT 14.20 INR 1.06 APTT 33.0 Sodium 137 Potassium 5.2 H Chloride 100 Carbon Dioxide 27 Anion Gap 15.2 BUN 23 Creatinine 1.0 H GFR Calculation Not Reportable Glucose 103 POC Glucose Estimat Average Gl ucose Hemoglobin A1c Calculated Osmolal ity 288 Calcium 9.6 Phosphorus Magnesium Total Bilirubin 0.2 AST 21 ALT 16 Alkaline Phosphata se 61 Troponin T Baselin e 11 H Troponin T 120 Min arie Delta Troponin T Troponin T Hi Sens 6Hr Troponin T Hi Sens 6Hr Delta Total Protein 7.3 Albumin 4.5 Globulin 2.8 Triglycerides Cholesterol LDL Cholesterol, C alc HDL Cholesterol LDL/HDL Ratio Cholesterol/HDL Ra tiana TSH Urine Color Urine Appearance Urine pH Ur Specific Gravit y Urine Protein Urine Glucose (UA) Urine Ketones Urine Blood Urine Nitrate Urine Bilirubin Urine Urobilinogen Ur Leukocyte Najma ase Urine Opiates Scre en Ur Barbiturates Sc reen Ur Phencyclidine S crn Ur Amphetamines Sc reen U Benzodiazepines Scrn Urine Cocaine Scre en U Marijuana (THC) Screen 03/23/21 16:05 WBC 14.2 H RBC 4.36 Hgb 13.9 Hct 41.6 MCV 95.4 MCH 31.9 MCHC 33.4 RDW 12.9 Plt Count 319 MPV 10.5 H Neut % (Auto) 80.5 Lymph % (Auto) 12.1 [place] % (Auto) 6.6 Eos % (Auto) 0.1 Baso % (Auto) 0.4 Neut # (Auto) 11.42 H Lymph # (Auto) 1.7 [place] # (Auto) 0.9 Eos # (Auto) 0.0 Baso # (Auto) 0.1 Nucleated RBC % (a uto) 0 Nucleated RBCs # 0.0 PT INR APTT Sodium Potassium Chloride Carbon Dioxide Anion Gap BUN Creatinine GFR Calculation Glucose POC Glucose Estimat Average Gl ucose Hemoglobin A1c Calculated Osmolal ity Calcium Phosphorus Magnesium Total Bilirubin AST ALT Alkaline Phosphata se Troponin T Baselin e Troponin T 120 Min arie Delta Troponin T Troponin T Hi Sens 6Hr Troponin T Hi Sens 6Hr Delta Total Protein Albumin Globulin Triglycerides Cholesterol LDL Cholesterol, C alc HDL Cholesterol LDL/HDL Ratio Cholesterol/HDL Ra tiana TSH Urine Color Urine Appearance Urine pH Ur Specific Gravit y Urine Protein Urine Glucose (UA) Urine Ketones Urine Blood Urine Nitrate Urine Bilirubin Urine Urobilinogen Ur Leukocyte Najma ase Urine Opiates Scre en Ur Barbiturates Sc reen Ur Phencyclidine S crn Ur Amphetamines Sc reen U Benzodiazepines Scrn Urine Cocaine Scre en U Marijuana (THC) Screen Vitals: Last Vital Signs Temp 97.8 F 03/24/21 08:00 Pulse 82 03/24/21 14:00 Resp 24 H 03/24/21 12:00 BP 121/71 03/24/21 12:00 Pulse Ox 96 03/24/21 12:00 Discharge Plan Discharge Patient Disposition: Home Condition: Stable Prescriptions: New aspirin 81 mg Tablet,Delayed Release (Dr/Ec) 81 mg PO DAILY Qty: 30 RF: 3 atorvastatin 40 mg Tablet 80 mg PO DAILY 30 Days Qty: 30 RF: 3 clopidogrel 75 mg Tablet 75 mg PO DAILY 21 Days Qty: 21 RF: 0 omeprazole 10 mg capsule,delayed release(DR/EC) 10 mg PO DAILY Qty: 30 RF: 0 Discharge Orders: Discharge Order (Routine); Ordered 03/24/21 Ordered By: Abdirahman Connelly Referrals: Chidi Jaquez, CERTIFIED RESPIRATORY THERAPIST, MSN, AGACNP- [Nurse Practitioner] - 04/07/21 10:15 am (You have an appointment at [facility] with Chidi Jaquez on April 07 at 10:15am) Tulio Car DO [Primary Care Provider] - 03/28/21 9:20 am (You have a hospital followup with Dr. Car at [facility] on March 28 at 9:20am) Discharge Diet: Cardiac Discharge Activity: Increase activity as tolerated Patient Instructions: Aspirin (By mouth), Atorvastatin (By mouth), Clopidogrel (By mouth), Opioid Safety, TIA Discharge Attestations Time Spent in Discharge Care*: less than 30 min Quality Metrics Clinical Quality Measures During this hospital stay, did patient experience: None Coding Level of Care Code Acute Chg FW DC note Diagnoses Syncope and collapse R55 Brain TIA G45.9 Carotid artery stenosis I65.29
--- NOTE | 2021-03-24 17:45 | PC.NURSE ---
Discharge Note Patient discharged to Home via private vehicle accompanied by son. Discharge instructions reviewed with patient and/or food service sales representatives. Mobile pharmacy medications and/or prescriptions provided. Belongings/home medications returned.
--- NOTE | 2021-03-24 21:04 | MR_ITS ---
WS: [id number] MRI HEAD WITHOUT CONTRAST TECHNIQUE: Sagittal T1, T2 axial, T2 axial FLAIR, axial and coronal T1 images, axial susceptibility w eighted imaging, axial diffusion weighted images, and coronal T2 images were obtained. CLINICAL INFORMATION: TIA COMPARISON: CT March 23, 2021 FINDINGS: No evidence of restricted diffusion to suggest acute ischemia. Ventricular system and basal cisterns are patent. Mild small vessel changes. Moderate parenchymal volume loss. Small vessel changes in the jonathan. Normal posterior fossa. Normal vascular flow voids at the skull base. No extra axial fluid collection s. No evidence of mass or mass effect. Paranasal sinuses and mastoid air cells well aerated. A few chronic lacunar infarcts in the periventr icular white matter. No hemosiderin on susceptibly weighted images. Moderate symmetric atrophy tempor al lobes and hippocampal formations. Normal optic chiasm and pituitary infundibulum. MR/MR head wo con* [id number] IMPRESSION: 1. No evidence of restricted diffusion to suggest acute ischemia. 2. Mild small vessel changes with moderate parenchymal volume loss. 3. A few chronic lacunar infarcts in the periventricular white matter. 4. Moderate symmetric atrophy temporal lobes hippocampal formations. 5. No other significant findings.
== END 2021-03-24 17:40 | disposition home or self-care (01) ==
LOC: ER 18:48 → ER IP 03-24 05:36 → CSU 03-24 06:52
PROVIDERS: Admitting Provider Internal Medicine; Emergency Provider Emergency Medicine; PCP Family Medicine; Visit Provider Internal Medicine
DX: G45.9 Transient cerebral ischemic attack, unspecified (principal); R55 Syncope and collapse; I65.22 Occlusion and stenosis of left carotid artery
CPT/HCPCS: 36415; 36416; 70450; 70496; 70498; 70551; 80048; 80053; 80061; 80306; 81003; 82962; 83036; 83735; 84100; 84443; 84484; 85025; 85610; 85730; 93005; 93306; 96360; 96361; 96372; 99285; G0378; J1644; J7030; Q9967

== ENCOUNTER 2022-03-04 08:55 | Outpatient (CLI) | payer MEDICARE, SELFPAY ==
--- NOTE | 2022-03-04 09:05 | XRR_ITS ---
PROCEDURE INFORMATION: Exam: XR Right Shoulder Exam date and time: 03/04/2022 9:06 AM Age: 86 years old Clinical indication: Right; Patient HX: Lifting and felt pain in shoulder, stroke last February 2021. HX of breast and colon cancer; Additional info: Right shoulder pain TECHNIQUE: Imaging protocol: Radiologic exam of the Right shoulder. Views: 2 or more views. COMPARISON: CT angio headneck* [id number] 03/23/2021 4:38 PM FINDINGS: Bones/joints: Osteoarthritis is seen with narrowing and sclerosis of the right glenohumeral joint. Bone spurs are present. Narrowing of the acromial humeral space is seen which may reflect rotator cuff injury. No additional bony abnormalities seen Soft tissues: Normal. XR/XR shoulder RT min 2V* [id number] IMPRESSION: 1. No acute findings. 2. Osteoarthritis is noted.
== END 2022-03-04 08:56 | disposition home or self-care (01) ==
LOC: RAD 08:58
PROVIDERS: PCP Family Medicine; Visit Provider Clinical Nurse Specialist Adult Health
DX: M19.011 Primary osteoarthritis, right shoulder (principal); G89.29 Other chronic pain
CPT/HCPCS: 73030

== ENCOUNTER 2022-03-11 06:00 | Outpatient (RCR) | payer MEDICARE, SELFPAY | END 2022-03-23 23:59 | disposition home or self-care (01) | LOC: SPT 06:00 | PROVIDERS: PCP Family Medicine; Visit Provider Clinical Nurse Specialist Adult Health | DX: M25.511 Pain in right shoulder (principal); G89.29 Other chronic pain | CPT/HCPCS: 97110; 97161 ==

== ENCOUNTER 2022-03-24 06:00 | Outpatient (RCR) | payer MEDICARE, SELFPAY | END 2022-04-22 23:59 | disposition home or self-care (01) | LOC: SPT 06:00 | PROVIDERS: PCP Family Medicine; Visit Provider Clinical Nurse Specialist Adult Health | DX: M25.511 Pain in right shoulder (principal); G89.29 Other chronic pain | CPT/HCPCS: 97110 ==

== ENCOUNTER → 2022-04-29 13:28 | Outpatient (BNVA) | payer MEDICARE, SELFPAY | PROVIDERS: PCP Family Medicine; Visit Provider Family Medicine | DX: E78.5 Hyperlipidemia, unspecified (principal); E03.9 Hypothyroidism, unspecified; I65.29 Occlusion and stenosis of unspecified carotid artery | CPT/HCPCS: 80053; 80061; 84443 ==

== ENCOUNTER → 2023-05-10 09:55 | Outpatient (BNVA) | payer MEDICARE, SELFPAY | PROVIDERS: PCP Family Medicine; Visit Provider Family Medicine | DX: I65.29 Occlusion and stenosis of unspecified carotid artery (principal); E78.5 Hyperlipidemia, unspecified; E03.9 Hypothyroidism, unspecified; Z13.6 Encounter for screening for cardiovascular disorders; E11.9 Type 2 diabetes mellitus without complications | CPT/HCPCS: 80053; 80061; 83036; 84443 ==

== ENCOUNTER 2024-02-07 06:00 | Outpatient (CLI) | payer MEDICARE, SELFPAY | END 2024-02-07 06:01 | disposition home or self-care (01) | LOC: RAD 02-28 10:07 | PROVIDERS: PCP Family Medicine; Visit Provider Family Medicine | DX: I65.29 Occlusion and stenosis of unspecified carotid artery (principal); E78.5 Hyperlipidemia, unspecified; E03.9 Hypothyroidism, unspecified | CPT/HCPCS: 80053; 80061; 84443 ==

== ENCOUNTER → 2025-02-05 10:14 | Outpatient (BNVA) | payer MEDICARE, SELFPAY | PROVIDERS: PCP Family Medicine; Visit Provider Family Medicine | DX: E78.5 Hyperlipidemia, unspecified (principal); Z00.00 Encounter for general adult medical examination without abnormal findings; E03.9 Hypothyroidism, unspecified | CPT/HCPCS: 80053; 80061; 84443 ==

== ENCOUNTER 2025-03-23 06:54 | Outpatient (CLI) | payer MEDICARE, SELFPAY ==
--- NOTE | 2025-03-23 07:00 | USCV_ITS ---
Yudith Albright Age: 89 Gender: F : 1935 Exam Date: 03/23/2025 07:23 Ordering Phys: Tulio Car DO Technologist: Alex Juarez Exam Location: [facility] – [place] Indication: nonrheumatic aortic valve stenosis BP: 140 / 66 HR: 69 Rhythm: Sinus Technical Quality: Technically difficult study MEASUREMENTS (Male / Female) Normal Values 2D ECHO LVOT Diameter 2.2 cm LV Ejection Fraction MOD 4C 59.0 % LV Ejection Fraction MOD 2C 58.1 % LV Ejection Fraction 2C AL 57.0 % LA Diameter 3.0 cm RA Systolic Volume 4C AL 28.0 ml RA Systolic Volume 4C MOD 27.6 ml LA Sys Volume AL 29.2 cm cubed LA Sys Volume Index AL 18.3 cm cubed/m squared Aorta at Sinotubular Diameter 2.4 cm IVC Diameter 1.3 cm DOPPLER AV Peak Velocity 326.0 cm/s LVOT Peak Velocity 93.0 cm/s AV Area Cont Eq vti 0.9 cm squared AV Area Cont Eq pk 1.1 cm squared MV Peak Velocity 103.0 cm/s MV Area PHT 3.0 cm squared Mitral E to A Ratio 0.7 TV Peak Velocity 200.0 cm/s TR Peak Velocity 216.0 cm/s TR Peak Gradient 18.7 mmHg TR Mean Velocity 176.0 cm/s TR Mean Gradient 13.4 mmHg TR Velocity Time Integral 62.5 cm PV Peak Velocity 78.0 cm/s RV Ejection Time 0.2 s FINDINGS Left Ventricle Normal left ventricular size, systolic function and wall thickness with no regional wall motion abnormality. Left ventricular ejection fraction is 60%. Indeterminate left ventricular diastolic function due to severe mitral annular calcification. Right Ventricle Normal right ventricular size and systolic function. Right Atrium Normal right atrial size. Left Atrium Normal left atrial size. IA Septum Normal appearance of the interatrial septum. Mitral Valve Severe mitral annular calcification. No mitral valve stenosis. Trace mitral valve regurgitation. Aortic Valve The aortic valve is not well-visualized. There is at least moderate aortic valve calcification. Moderate to severe aortic valve stenosis with an aortic valve area by continuity equation of 1.0 cm squared. The LVOT to aortic valve velocity ratio is 0.28. There is no aortic valve regurgitation. Tricuspid Valve Normal tricuspid valve structure. Trace tricuspid valve regurgitation. Normal pulmonary pressure. Pulmonic Valve Normal pulmonic valve structure. No pulmonic valve stenosis or regurgitation. Pericardium No pericardial effusion. Aorta Normal diameter of the aortic root and ascending thoracic aorta. IVC Normal IVC diameter. CONCLUSIONS Normal left ventricular size, systolic function and wall thickness with ejection fraction of 60%. Normal right ventricular size and systolic function. Moderate to severe aortic valve stenosis This was a technically difficult study. Roberto Mauricio MD, FACC (Electronically Signed) Final Date: 23 March 2025 20:28 S
== END 2025-03-23 06:55 | disposition home or self-care (01) ==
LOC: RAD 06:55
PROVIDERS: PCP Family Medicine; Visit Provider Family Medicine
DX: I35.0 Nonrheumatic aortic (valve) stenosis (principal); E78.5 Hyperlipidemia, unspecified; E03.9 Hypothyroidism, unspecified; M19.90 Unspecified osteoarthritis, unspecified site
CPT/HCPCS: 93306

== ENCOUNTER 2025-04-03 21:32 | Emergency (ER) | payer MEDICARE, SELFPAY ==
[2025-04-03 21:34] VITALS: BP 111/53; PULSE 99; RESP 16; TEMP 37.2; O2SAT 93
--- NOTE | 2025-04-03 23:04 | ECG_ITS ---
[facility] Test Date: 2025-04-04 Pat Name: Yudith Albright Department: Room: Gender: Female Manager Department: : 1935 Requested By: Isaura Dos Santos Order Number: [id number] Anabella MD: Roberto Mauricio M.D. Measurements Intervals [place] Rate: 104 P: 16 IL: 166 QRS: -10 QRSD: 82 T: 38 QT: 299 QTc: 394 Interpretive Statements SINUS TACHYCARDIA ABNORMAL RHYTHM ECG Compared to ECG 03/23/2021 22:13:42 Myocardial infarct finding no longer present Electronically Signed On 04-04-2025 20:13:27 PRODUCTION LINE by Roberto Mauricio M.D. [email or web address]
[2025-04-03 23:43] LABS: Hematocrit 37.2 % (36-47); Hemoglobin 12.80 g/dL (11.27-16.99); Mean Corpuscular HGB Conc 34.4 g/dL (30-55); Mean Corpuscular Hemoglobin 31.6 pg (27-33); Mean Corpuscular Volume 91.9 fl (85-98); Platelet Count 309 10^3/cmm (157-399); Red Blood Count 4.05 10^6/uL (3.85-5.65); White Blood Count 17.58 10^3/uL (3.29-11.43)
[2025-04-03 23:46] VITALS: BP 140/73; PULSE 100; O2SAT 92
[2025-04-04 00:01] LABS: Troponin(5th) Baseline 16 ng/L (0-10)
[2025-04-04 00:03] LABS: Alanine Aminotransferase 11 U/L (0-33); Albumin Level 4.1 g/dL (3.5-5.2); Alkaline Phosphatase 65 U/L (35-105); Anion Gap 17.5 (5-19); Aspartate Amino Transferase 14 U/L (0-32); Blood Urea Nitrogen 22 mg/dL (8-23); Calcium 8.9 mg/dL (8.5-10.5); Carbon Dioxide 24 mmol/L (22-29); Chloride 95 mmol/L (98-107); Creatinine Clr Calc Pharmacy 45.4239; Globulin 2.6 g/dL (1.3-4.6); Glucose 187 mg/dL (65-115); Lipase 22 U/L (13-60); Osmolality Calculated 282 mOsm/kg (285-295); Potassium 4.5 mmol/L (3.5-5.1); Sodium 132 mmol/L (136-145); Total Protein 6.7 g/dL (6.6-8.7)
[2025-04-04] MEDS: ondansetron 2 mg/ML SDV 2 mL 4 MG IVP (00:14)
[2025-04-04 00:15] VITALS: BP 126/84; PULSE 104; O2SAT 92
[2025-04-04 00:18] LABS: Band Neutrophils Absolute 3.3 10^3/cmm (0.0-1.2); Slide Review Slide Review Perform; Total Cells Counted 100 (0-100)
[2025-04-04 00:19] LABS: Absolute Segmented Neutrophil 13.0 10/cmm (1.6-7.1)
[2025-04-04 00:32] VITALS: BP 143/83; PULSE 100; O2SAT 93
[2025-04-04 01:30] VITALS: BP 133/97; PULSE 101; O2SAT 91
--- NOTE | 2025-04-04 01:30 | ED_ITS ---
HPI - General Adult 2 General: Chief complaint: Nausea/Vomiting/Diarrhea Stated complaint: V\From Medicine from Urgent Care Time Seen by Provider: 04/03/25 22:41 History of Present Illness: Patient is an 89-year-old female with a past medical history of CVA on baby aspirin daily, thyroid disease presents with several days of upper respiratory infections including purulent nasal discharge, dry cough, left ear pain. She was seen at urgent care today, diagnosed with a viral upper respiratory infection, prescribed Bromfed and Augmentin. 2 hours after taking Augmentin, patient vomited twice. Patient has not had any lip, tongue or uvula swelling. She has not had any stridor, new wheezing or new difficulty breathing. No severe diarrhea or abdominal cramping. No rash. Son is concerned that she is becoming dehydrated. Patient herself denies chest pain though she feels a little bit more short of breath. Patient denies dysuria, diarrhea, blood in stool or urine. She has not fallen or injured herself. Related Data Home Medications ?Medication ?Instructions ?Recorded ?Confirmed aspirin 81 mg tablet,delayed 162 mg PO DAILY 03/04/22 04/03/25 release melatonin 5 mg capsule mg PO 03/04/22 04/03/25 Previous Rx's ?Medication ?Instructions ?Recorded levothyroxine 25 mcg tablet 25 mcg PO DAILY #90 tabs 0 10/29/23 prednisone 10 mg tablet 10 mg PO DAILY PRN for 10/28 inflammation from arthritis #15 tabs albuterol sulfate 90 mcg/actuation 2 puff inhalation Q 6H PRN 04/03/25 aerosol inhaler shortness of breath or wheez ing #8.5 grams amoxicillin 875 mg-potassium 1 tab PO BID 7 days #14 t abs 04/03/25 clavulanate 125 mg tablet ihxrfiowfdldarl-cenxzlccuevxpfv-DL 4 ml PO Q6H PRN col d symptoms #118 04/03/25 2 mg-30 mg-10 mg/5 mL oral syrup mL (Bromfed DM) cefdinir 300 mg capsule 300 mg PO BID 5 days #10 cap s 04/04/25 ofloxacin 0.3 % ear drops 5 drp otic (ear) BID 7 days #10 mL 04/04/25 ondansetron HCl 4 mg tablet 4 mg PO Q6H 20 24 hours #1 0 tabs 04/04/25 Allergies Allergy/AdvReac Type Severity Reaction Status Date / Time No Known Allergies Allergy Verified 04/03/25 21:43 PFSH ED 2 PFSH: Medical History (Updated 04/04/25 @ 02:55 by Isaura Dos Santos MD) Insomnia Colon cancer 2002 Breast cancer 1989 Seasonal allergies GERD (gastroesophageal reflux disease) Hyperlipidemia Brain TIA Syncope and collapse Surgical History History of colon surgery Family History Other Cancer Dementia Social History Smoking and tobacco/nicotine status: never used tobacco/nicotine Alcohol intake: current Alcohol intake frequency: holidays/special occasions only Physical Exam 2 Narrative: EXAM NARRATIVE: Vital signs were reviewed. Patient is alert but communication is difficult due to impaired hearing. R TM does not appear erythematous or bulging. There is a lot of debris in the left ear canal and ear canal appears somewhat inflamed. Limited exam of L TM does not appear consistent w/otitis media. Patient is breathing comfortably, no increased WOB or accessory muscle use. SpO2 is above 92% on RA. Patient has clear lungs b/l, no rhonchi, wheezing or crackles. No hypotension. +Mild tachycardia. Abdomen is soft, nondistended and nontender. No CVA tenderness w/percussion of the flanks. Patient is moving all extremities, no deformity or gross injury. No lower extremity edema or asymmetry. Course 2 Vital Signs: Vital signs: Vital Signs Temperature 99.0 F 04/03/25 21:34 Pulse Rate 99 04/04/25 03:05 Respiratory Rate 16 04/03/25 21:34 Blood Pressure 104/59 04/04/25 03:05 Pulse Oximetry 91 04/04/25 03:05 Oxygen Delivery Me thod Room Air 04/04/25 01:30 MDM - General Adult Medical Decision Making 89-year-old female presents with a chief complaint of several days of upper respiratory symptoms, now nausea and vomiting 2 hours after taking her first dose of Augmentin. Differential diagnosis includes but is not limited to, viral upper respiratory infection, sinusitis, bronchitis, pneumonia, COPD/asthma exacerbation, gastroenteritis, diverticulitis, constipation, urinary tract infection, pyelonephritis, allergic reaction, anaphylaxis. On initial exam, patient is hemodynamically stable though she is very mildly tachycardic and has an elevated temperature though not a fever. She was evaluate CBC, CMP, troponin, UA and EKG. Noted that she had a negative COVID/flu test today. She was treated w/IV fluids and IV zofran. Patient has an elevated white blood cell count of 17.58. She does not have actionable electrolyte abnormalities and continues to have normal creatinine. She has normal liver function. Baseline troponin is mildly elevated but negative delta. Lipase is within normal limits. UA does not show infection. It is unclear if n/v is a mild allergy to augmentin vs known adverse effect of medication; will switch to cefdinir. Will aslo prescribe abx drops for L otitis media. Otherwise, patient is stable for discharge. Family at bedside was counseled on supportive care measures at home, given return precautions and patient was discharged in stable condition. Lab Data 04/03/25 23:34 04/03/25 23:34 Laboratory Results WBC 17.58 10^3/uL (3.29-11.43) H 04/03/25 23:34 RBC 4.05 10^6/uL (3.85-5.65) 04/03/25 23:34 Hgb 12.80 g/dL (11.27-16.99) 04/03/25 23:34 Hct 37.2 % (36-47) 04/03/25 23:34 MCV 91.9 fl (85-98) 04/03/25 23:34 MCH 31.6 pg (27-33) 04/03/25 23:34 MCHC 34.4 g/dL (30-55) 04/03/25 23:34 RDW 12.9 % (12.1-15.1) 04/03/25 23:34 Plt Count 309 10^3/cmm (157-399) 04/03/25 23:34 MPV 9.9 fL (7.4-10.4) 04/03/25 23:34 Lymph % (Auto) Not Reportable 04/03/25 23:34 Cascade % (Auto) Not Reportable 04/03/25 23:34 Lymph # (Auto) Not Reportable 04/03/25 23:34 [place] # (Auto) Not Reportable 04/03/25 23:34 Total Counted 100 (0-100) 04/03/25 23:34 Atypical Lymphs % Not Reportable 04/03/25 23:34 Absolute Neutrophils 16.3 10^3/cmm (1.4-6.5) H 04/03/25 23:34 Segmented Neutrophils 74 % 04/03/25 23:34 Band Neutrophils 19.0 % 04/03/25 23:34 Lymphocytes (Manual) 3 % 04/03/25 23:34 Monocytes (Manual) 4.0 % 04/03/25 23:34 Absolute Monocytes 0.7 10^3/cmm (0.1-0.6) H 04/03/25 23:34 Eosinophils (Manual) 0 % 04/03/25 23:34 Absolute Eosinophils 0.0 10^3/cmm (0.0-0.7) 04/03/25 23:34 Basophils (Manual) 0.0 % 04/03/25 23:34 Absolute Basophils 0.0 10^3/cmm (0.0-0.2) 04/03/25 23:34 Platelet Estimate Normal (Normal) 04/03/25 23:34 Sodium 132 mmol/L (136-145) L 04/03/25 23:34 Potassium 4.5 mmol/L (3.5-5.1) 04/03/25 23:34 Chloride 95 mmol/L (98-107) L 04/03/25 23:34 Carbon Dioxide 24 mmol/L (22-29) 04/03/25 23:34 Anion Gap 17.5 (5-19) 04/03/25 23:34 BUN 22 mg/dL (8-23) 04/03/25 23:34 Creatinine 0.8 mg/dL (0.5-0.9) 04/03/25 23:34 GFR Calculation Not Reportable 04/03/25 23:34 Glucose 187 mg/dL (65-115) H 04/03/25 23:34 Calculated Osmolality 282 mOsm/kg (285-295) L 04/03/25 23:34 Calcium 8.9 mg/dL (8.5-10.5) 04/03/25 23:34 Total Bilirubin 0.5 mg/dL (0.15-1.2) 04/03/25 23:34 AST 14 U/L (0-32) 04/03/25 23:34 ALT 11 U/L (0-33) 04/03/25 23:34 Alkaline Phosphatase 65 U/L (35-105) 04/03/25 23:34 Troponin T Baseline 16 ng/L (0-10) H 04/03/25 23:34 Troponin T 120 Minute 16.13 ng/L (0-10) H 04/04/25 01:33 Delta Troponin T 0.13 ABS# (0-10) 04/04/25 01:33 Total Protein 6.7 g/dL (6.6-8.7) 04/03/25 23:34 Albumin 4.1 g/dL (3.5-5.2) 04/03/25 23:34 Globulin 2.6 g/dL (1.3-4.6) 04/03/25 23:34 Lipase 22 U/L (13-60) 04/03/25 23:34 Urine Color Dark yellow (Yellow) A 04/04/25 01:17 Urine Appearance Cloudy (CLEAR) A 04/04/25 01:17 Urine pH 5.5 (5-7) 04/04/25 01:17 Ur Specific Forsan 1.031 (1.005-1.030) H 04/04/25 01:17 Urine Protein 2+ (Negative) A 04/04/25 01:17 Urine Glucose (UA) Negative (Normal) 04/04/25 01:17 Urine Ketones Trace (Negative) 04/04/25 01:17 Urine Blood 1+ (Negative) A 04/04/25 01:17 Urine Nitrate Negative (Negative) 04/04/25 01:17 Urine Bilirubin 1+ (Negative) H 04/04/25 01:17 Urine Urobilinogen 1.0 mg/dL (Negative) 04/04/25 01:17 Ur Leukocyte Esterase Trace (Negative) A 04/04/25 01:17 Urine RBC 3-5 /hpf (0-2) 04/04/25 01:17 Urine WBC 0-5 /hpf (0-5) 04/04/25 01:17 Ur Squamous Epith Cells 0-5 /hpf (0-5) 04/04/25 01:17 Amorphous Sediment Not Reportable 04/04/25 01:17 Urine Bacteria None seen /hpf (NONE) 04/04/25 01:17 Hyaline Casts 24.82 /lpf 04/04/25 01:17 Urine Mucus 2+ /hpf 04/04/25 01:17 No radiology studies performed this visit EKG Data EKG 1: Interpretation: Mild sinus tachycardia with a heart rate of 104, left axis deviation, normal intervals, no STEMI. Discharge Plan Discharge Patient Disposition: Home Clinical Impression: Acute upper respiratory infection Nausea & vomiting Qualifiers: Vomiting type: unspecified Qualified Code(s): R11.2 - Nausea with vomiting, unspecified Otitis externa, left Qualifiers: Otitis externa type: unspecified type Chronicity: acute Qualified Code(s): H 60.502 - Unspecified acute noninfective otitis externa, left ear Condition: Stable Prescriptions: New cefdinir 300 mg capsule 300 mg PO BID 5 Days Qty: 10 0RF ondansetron HCl 4 mg tablet 4 mg PO Q6H 1 Days Qty: 10 0RF ofloxacin 0.3 % drops 5 drp otic (ear) BID 7 Days Qty: 10 0RF No Action aspirin 81 mg tablet,delayed release (DR/EC) 162 mg PO DAILY melatonin 5 mg capsule PO snmogdpwqwvshyo-ucpfiidfc-BY [Bromfed DM] 2-30-10 mg/5 mL syrup 4 ml PO Q6H PRN (Reason: cold symptoms) Qty: 118 0RF amoxicillin-pot clavulanate 875-125 mg tablet 1 tab PO BID 7 Days Qty: 14 0RF albuterol sulfate 90 mcg/actuation HFA aerosol inhaler 2 puff inhalation Q6H PRN (Reason: shortness of breath or wheezing) Qty: 8.5 0RF levothyroxine 25 mcg tablet 25 mcg PO DAILY Qty: 90 1RF prednisone 10 mg tablet 10 mg PO DAILY PRN (Reason: for inflammation from arthritis) Qty: 15 1RF Discharge Orders: Discharge ED (Routine); Ordered 04/04/25 Ordered By: Isaura Dos Santos Referrals: Tulio Car DO [Primary Care Provider, Family Practice] Patient Instructions: Otitis Externa - Adult, Acute Nausea and Vomiting (ED), Opioid Safety, Pain Management, Patient Portal & [place] Instructions, Upper Respiratory Infection - Adult Activity Restrictions/Additional Instructions: Please continue to monitor your condition closely at home. Take Tylenol 500- 1000mg every six hours for pain and inflammation. Switch your antibiotics to cefdinir. You may take Zofran for nausea and vomiting. Use ear drops in your left ear twice a day for 7 days. If your condition worsens or additional concerns arise, please return promptly to the emergency department for reassessment. Follow up with your primary care doctor in one week. Print Language: Chinese Coding Level of Care Code ED Tube Operator for Danii Velarde
[2025-04-04 01:34] LABS: Glucose Urine UA Negative (Normal); Nitrate Urine Negative (Negative)
[2025-04-04 01:39] LABS: Add Urine Microscopic? YES
[2025-04-04 01:51] LABS: Specific Gravity, Urine 1.031 (1.005-1.030); UA Slide Review UA Slide Review Perf
[2025-04-04 01:59] LABS: Troponin 5 2HR 16.13 ng/L (0-10); Troponin 5 2HR Delta 0.13 ABS# (0-10)
[2025-04-04 03:05] VITALS: BP 104/59; PULSE 99; O2SAT 91
== END 2025-04-04 03:36 | disposition home or self-care (01) ==
PROVIDERS: Emergency Provider Emergency Medicine; PCP Family Medicine
DX: J06.9 Acute upper respiratory infection, unspecified (principal); R11.2 Nausea with vomiting, unspecified; H60.502 Unspecified acute noninfective otitis externa, left ear; Z79.82 Long term (current) use of aspirin; E78.5 Hyperlipidemia, unspecified; Z85.3 Personal history of malignant neoplasm of breast; Z85.038 Personal history of other malignant neoplasm of large intestine; Z86.73 Personal history of transient ischemic attack (TIA), and cerebral infarction without residual deficits
CPT/HCPCS: 36415; 80053; 81001; 83690; 84484; 85007; 87400; 87426; 93005; 96361; 96374; 99284; J2405; J7120